=== PATIENT | female | born 1970 | race Caucasian/White ===

== ENCOUNTER 2021-12-30 08:36 | Emergency (ER) | payer OTHER ==
[2021-12-30] MEDS ORDERED: IBUPROFEN600 MG PO (10:18)
== END 2021-12-30 10:30 | disposition home or self-care (01) ==
LOC: ER1 08:36
DX: S63.502A Unspecified sprain of left wrist, initial encounter (principal); S50.02XA Contusion of left elbow, initial encounter; I10 Essential (primary) hypertension; W01.0XXA Fall on same level from slipping, tripping and stumbling without subsequent striking against object, initial encounter
CPT/HCPCS: 73090; 73100; 73120; 99283